=== PATIENT | female | born 1975 | race Caucasian/White ===

== ENCOUNTER 2016-11-08 14:25 | Emergency (ER) | payer OTHER ==
[~2016-11-08] VITALS: Ht 167.6 cm; Wt 74.8 kg
[~2016-11-08 14:25] MED LIST: AMOXICILLIN500 MG PO; ATENOLOL25 MG PO; ATIVAN0.5 MG PO; HYDROCODONE/ACE1 TA1 PO; LORAZEPAM1 MG PO; MOBIC15 MG PO; NAPROSYN 500 M500 MG PO; PRILOSEC40 MG PO; TOPROL XL25 MG PO; VITAB121000 PO
--- NOTE | 2016-11-08 16:05 | ED GENERAL ADULT ---
History of Present Illness General Chief Complaint: Chest Pain Stated Complaint: CHEST PRESSURE Source: patient Exam Limitations: no limitations Vital Signs & Intake/Output Vital Signs & Intake/Output Vital Signs Date Time Temp Pulse Resp B/P Pulse O2 O2 Flow FiO2 Ox Delivery Rate 11/08 1739 98.6 96 18 130/73 100 Room Air 11/08 1459 98.2 54 20 135/79 99 Room Air Allergies Coded Allergies: NO KNOWN ALLERGIES (10/30/14) Reconcile Medications Atenolol 25 MG TABLET 1 TAB PO DAILY BP (Reported) Cyanocobalamin (Vitamin B-12) 1,000 MCG TAB 1 TAB PO DAILY V (Reported) HYDROCODONE/ACETAMINOPHEN (Hydrocodon-Acetaminophen 5-325) 1 TAB TAB 1 TAB PO Q6P PRN PAIN Lorazepam (Ativan) 0.5 MG TAB 1 TAB PO DAILY anxiety Naproxen (Naprosyn) 500 MG TAB 1 TAB PO BID PRN PAIN Omeprazole (Prilosec) 40 MG ECC 40 MG PO DAILY reflux Triage Note: RECEIVED 41 YO FEMALE C/O SQUEEZING MID STERNAL CHEST PRESSURE, STARTED 2 HOURS AGO. PT REPORTS SHE WOKE UP THIS AM WITH A HEADACHE AND FEELING DIZZY. NO C/O SOB. Triage Nurses Notes Reviewed? yes Onset: Abrupt Duration: hour(s): Timing: recent history : No Patient currently breastfeeds: No HPI: 11/08/16 4:34 PM This is a 41-year-old female who presents to the emergency department complaining of pinching chest pain and dizziness. The patient states she was in her usual state of health until this morning when she developed pinching chest pain that was associated with dizziness. She does admit to a history of palpitations. She says she has irregular heartbeats. She is on atenolol for this. She has been going to the gym recently and yesterday she went to the gym and was doing rowing exercise. She is concerned this may be contributing to the pinching chest pain. The onset of the symptoms were abrupt, the duration has been just this morning with onset approximately 7-8 hours prior to arrival. The severity is significant; as his symptoms required her to come to the emergency department for care. She does not smoke. She is not on oral contraceptives. Her well's score is low risk and her Perc score is 0. EKG reveals normal sinus rhythm. Labs have been sent and x-rays been ordered. RN note appreciated. The patient told me that his symptoms began this morning including the pinching chest pain. Past History Travel History Traveled to [place] past 21 day No Medical History Any Pertinent Medical History? see below for history Neurological: NONE EENT: NONE Cardiovascular: hypertension, PALPATATIONS Respiratory: NONE Gastrointestinal: NONE Hepatic: hepatitis B Renal: NONE Musculoskeletal: NONE Psychiatric: anxiety Endocrine: NONE Blood Disorders: anemia Cancer(s): NONE PRACTICE LEAD/Reproductive: NONE Surgical History Surgical History: NONE Psychosocial History What is your primary language Arabic Tobacco Use: Never used Family History Hx Contributory? No Review of Systems Review of Systems Constitutional: Denies: fever. EENTM: Denies: visual changes. Respiratory: Denies: short of breath. Cardiovascular: Reports: chest pain. GI: Denies: abdominal pain. Genitourinary: Reports: no symptoms. Musculoskeletal: Reports: no symptoms. Skin: Denies: rash. Neurological/Psychological: Reports: no symptoms. Hematologic/Endocrine: Reports: no symptoms. Physical Exam Physical Exam General Appearance: well developed/nourished, alert, awake, anxious, mild distress Head: atraumatic, normal appearance Eyes: Bilateral: normal appearance, PERRL, EOMI. Ears, Nose, Throat: normal pharynx, normal ENT inspection Neck: normal inspection, supple, full range of motion Respiratory: normal breath sounds, chest non-tender, no respiratory distress Cardiovascular: regular rate/rhythm Peripheral Pulses: 4+ radial (R), 4+ radial (L) Gastrointestinal: soft, non-tender Back: normal inspection, normal range of motion Extremities: normal inspection, normal range of motion, no edema Neurologic/Psych: no motor/sensory deficits, awake, alert, oriented x 3 Skin: intact, normal color, warm/dry Core Measures ACS in differential dx? Yes CVA/TIA Diagnosis: No Severe Sepsis Present: No Septic Shock Present: No Progress Differential Diagnoses I considered the following diagnoses in my evaluation of the patient: [Pulmonary embolism, acute coronary syndrome, costochondritis, anxiety] Plan of Care: Orders Procedure Date/time Status Add-on Test (ER Only) 11/08 161 Active Add-on Test (ER Only) 11/08 161 Active THYROID STIMULATING HORMONE 11/08 1604 Complete THYROXINE 11/08 1604 Complete HUMAN BETA HCG SCREEN 11/08 1604 Complete TROPONIN LEVEL 11/08 1501 Complete PARTIAL THROMBOPLASTIN TIME 11/08 1501 Complete PROTHROMBIN TIME 11/08 1501 Complete COMPREHENSIVE METABOLIC PANEL 11/08 1501 Complete CHOLESTEROL 11/08 1501 Complete CBC WITHOUT DIFFERENTIAL 11/08 150 Complete EKG 11/08 1443 Active Laboratory Tests 11/08/16 1604: Anion Gap 12, Estimated GFR > 60, BUN/Creatinine Ratio 12.5, Glucose 88, Calcium 9.8, Total Bilirubin 0.4, AST 26, ALT 46, Alkaline Phosphatase 60, Troponin I < 0.01, Total Protein 8.3 H, Albumin 4.9, Globulin 3.4, Albumin/Globulin Ratio 1.4, Cholesterol 212 H, TSH 0.626, Thyroxine (T4) 9.0, Total Beta HCG NEGATIVE, PT 11.2, INR 1.07, APTT 34, CBC w Diff NO MAN DIFF REQ, RBC 4.73, MCV 87.9, MCH 29.1, RDW 14.4, MPV 9.7, Gran % 68.1, Lymphocytes % 21.8, Monocytes % 7.7, Eosinophils % 1.3, Basophils % 1.1, Absolute Granulocytes 5.3, Absolute Lymphocytes 1.7, Absolute Monocytes 0.6, Absolute Eosinophils 0.1, Absolute Basophils 0.1, PUBS MCHC 33.1 Initial ED EKG: NSR Prior EKG: unchanged Departure Departure Disposition: STILL A PATIENT Condition: Stable Clinical Impression Primary Impression: Chest pain Referrals: BIPIN MACHADO (PCP/Family) Departure Forms: Customer Survey General Discharge Information Critical Care Note Critical Care Note Critical Care Time: non-applicable
[2016-11-08 16:21] LABS: ABSOLUTE BASOPHIL COUNT 0.1 /CUMM (0.0-0.2); ABSOLUTE EOSINOPHIL COUNT 0.1 /CUMM (0.0-0.7); ABSOLUTE GRANULOCYTE CT 5.3 /CUMM (1.4-6.5); ABSOLUTE LYMPH COUNT 1.7 /CUMM (1.2-3.4); ABSOLUTE MONOCYTE COUNT 0.6 /CUMM (0.10-0.60); BASOPHIL % 1.1 % (0.0-2.0); EOSINOPHIL % 1.3 % (0-5); GRANULOCYTE % 68.1 % (42.2-75.2); HEMATOCRIT 41.6 % (37-47); MEAN CORPUSCULAR HGB 29.1 PG (27.0-31.0); MEAN CORPUSCULAR HGB CONC 33.1 G/DL (33.0-37.0); MEAN CORPUSCULAR VOLUME 87.9 FL (81.0-99.0); MEAN PLATELET VOLUME 9.7 FL (7.4-10.4); PLATELET COUNT 255 /CUMM (130-400); RBC DISTRIBUTION WIDTH 14.4 % (11.5-14.5); RED BLOOD CELL CT 4.73 /CUMM (4.20-5.40); WHITE BLOOD CELL COUNT 7.8 /CUMM (4.8-10.8)
[2016-11-08 16:32] LABS: PT 11.2 SEC (9.4-12.5); PTT 34 SEC (25-37)
--- NOTE | 2016-11-08 17:15 | RADIOLOGY REPORT ---
EXAMINATION: XR PORTABLE CHEST CLINICAL INFORMATION: Chest pain. COMPARISON: Chest x-ray 09/10/2014. TECHNIQUE: Portable AP view of the chest was obtained. FINDINGS: The lungs are well-expanded and clear without focal airspace consolidation. No pleural effusions or pneumothoraces are identified. Cardiomediastinal contours are within normal limits. Soft tissues are unremarkable. No acute osseous abnormality is identified. IMPRESSION: No acute cardiopulmonary abnormality.
[2016-11-08 17:39] VITALS: BP 130/73
== END 2016-11-08 17:49 ==
LOC: ERH 14:25
PROVIDERS: Physician Assistant
DX: R07.89 Other chest pain (principal)
CPT/HCPCS: 93005; 93010

== ENCOUNTER 2018-04-14 20:58 | Emergency (ER) | payer OTHER ==
[~2018-04-14] VITALS: Ht 167.6 cm; Wt 74.8 kg
[~2018-04-14 20:58] MED LIST changes: +ATENOLOL25 M1 PO; -ATENOLOL25 MG PO; +ATIVAN1 M1 PO; +CYCLOBENZAPRINE5 M2 PO; +IBUPROFEN600 M1 PO
[2018-04-14 21:58] LABS: ABSOLUTE BASOPHIL COUNT 0.1 /CUMM (0.0-0.2); ABSOLUTE EOSINOPHIL COUNT 0.1 /CUMM (0.0-0.7); ABSOLUTE GRANULOCYTE CT 5.8 /CUMM (1.4-6.5); ABSOLUTE LYMPH COUNT 2.2 /CUMM (1.2-3.4); ABSOLUTE MONOCYTE COUNT 0.7 /CUMM (0.10-0.60); BASOPHIL % 0.8 % (0.0-2.0); EOSINOPHIL % 1.3 % (0-5); GRANULOCYTE % 65.4 % (42.2-75.2); MEAN CORPUSCULAR HGB 29.7 PG (27.0-31.0); MEAN CORPUSCULAR HGB CONC 33.5 G/DL (33.0-37.0); MEAN CORPUSCULAR VOLUME 88.6 FL (81.0-99.0); MEAN PLATELET VOLUME 9.5 FL (7.4-10.4); PLATELET COUNT 204 /CUMM (130-400); RBC DISTRIBUTION WIDTH 13.2 % (11.5-14.5); RED BLOOD CELL CT 4.51 /CUMM (4.20-5.40); WHITE BLOOD CELL COUNT 8.8 /CUMM (4.8-10.8)
--- NOTE | 2018-04-14 21:59 | ED CARDIAC/CP/PALPITATIONS ---
History of Present Illness General Chief Complaint: Dyspnea (COPD, CHF, Other) Stated Complaint: SOB, HIGH BP Source: patient Exam Limitations: no limitations Vital Signs & Intake/Output Vital Signs & Intake/Output Vital Signs Date Time Temp Pulse Resp B/P B/P Pulse O2 O2 Flow FiO2 Mean Ox Delivery Rate 04/15 0139 98.2 56 18 132/72 98 Room Air 04/15 0043 97.3 62 16 128/65 99 Room Air 04/14 2237 98.1 60 18 137/72 99 04/14 2116 98.5 67 20 136/84 98 Room Air ED Intake and Output 04/15 0000 04/14 1200 Intake Total Output Total Balance Patient 165 lb Weight Weight Reported by Patient Measurement Method Allergies Coded Allergies: No Known Allergies (04/14/18) Reconcile Medications Atenolol 25 MG TABLET 1 TAB PO DAILY HEART (Reported) LORazepam (Ativan) 1 MG TAB 1 TAB PO BID PRN ANXIETY Triage Note: TRIAGE: PT TO ER SOB SINCE WAKING UP THIS MORNING. FELT A LITTLE BIT BETTER LATER IN DAY WHEN LAYING DOWN BUT WHEN SHE GOT UP IT RETURNED, CHECKED HER B/P AND IT WAS 153/105 SO GOT CONCERNED AND CAME TO ER FOR EVAL. DENIES ANY PAIN BUT STATES "I FEEL LIKE A BOTHER" AND POINTS TO HER MID BACK. STATES SHE "FEELS LIKE HOT FLASHES" AND "MY EYE IS BURNING". R/A SATS WNL. LCTA AT TRIAGE. B/P 136/84 AT TRIAGE Triage Nurses Notes Reviewed? yes Onset: Abrupt Duration: hour(s): Timing: single episode today Radiation: no radiation Activities at Onset: none : No Patient currently breastfeeds: No HPI: 42-year-old female comes into the emergency room for further evaluation of some shortness of breath and feeling like her heart racing. Some discomfort to her neck area. Symptoms started this morning. Intermittent. No fever chills vomiting. Denies any cough. Nothing seems to make the symptoms better or worse. Denies any other associated symptoms. (Yasir Brantley) Past History Travel History Traveled to [place] past 21 day No Medical History Any Pertinent Medical History? 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 No (Yasir Brantley) Review of Systems Review of Systems Constitutional: Reports: no symptoms. EENTM: Reports: no symptoms. Respiratory: Reports: see HPI. Cardiovascular: Reports: see HPI. GI: Reports: no symptoms. Genitourinary: Reports: no symptoms. Musculoskeletal: Reports: no symptoms. Skin: Reports: no symptoms. Neurological/Psychological: Reports: no symptoms. Hematologic/Endocrine: Reports: no symptoms. Immunologic/Allergic: Reports: no symptoms. All Other Systems: Reviewed and Negative (Yasir Brantley) Physical Exam Physical Exam General Appearance: well developed/nourished, alert, awake Head: atraumatic Eyes: Bilateral: normal appearance. Ears, Nose, Throat: normal ENT inspection, hearing grossly normal Neck: normal inspection Respiratory: normal breath sounds, no respiratory distress Cardiovascular: regular rate/rhythm Back: normal inspection Extremities: normal inspection Neurologic/Psych: awake, alert, oriented x 3, normal gait Skin: intact, normal color Core Measures ACS in differential dx? Yes CVA/TIA Diagnosis No Sepsis Present: No Sepsis Focused Exam Completed? No (Yasir Brantley) Progress Differential Diagnosis: AMI, cholecystitis, costochondritis, hyperthyroid, hyperventilation, musculoskeletal pain, myocarditis, pancreatitis, pericarditis, pneumonia, pneumothorax, pulmonary embolism, PUD/GERD, PVCs/PACs, V-fib/V-Tach Plan of Care: Orders Procedure Date/time Status TROPONIN LEVEL 04/15 15 Complete EKG 04/15 15 Active TROPONIN LEVEL 04/14 2104 Complete LIPASE 04/14 2104 Complete HEPATIC FUNCTION PANEL 04/14 2104 Complete HUMAN BETA HCG SCREEN 04/14 2104 Complete D-DIMER 04/14 2104 Complete CBC WITHOUT DIFFERENTIAL 04/14 2104 Complete BASIC METABOLIC PANEL 04/14 2104 Complete AMYLASE 04/14 2104 Complete EKG 04/14 2104 Active Laboratory Tests 04/15/18 0011: Troponin I < 0.01 04/14/18 2140: Anion Gap 12, Estimated GFR > 60, BUN/Creatinine Ratio 17.1, Glucose 87, Calcium 9.1, Total Bilirubin 0.3, Direct Bilirubin 0.1, AST 25, ALT 36, Alkaline Phosphatase 51, Troponin I < 0.01, Total Protein 7.3, Albumin 4.4, Amylase 54, Lipase 33, Total Beta HCG NEGATIVE, D-Dimer High Sensitivty < 200, CBC w Diff NO MAN DIFF REQ, RBC 4.51, MCV 88.6, MCH 29.7, MCHC 33.5, RDW 13.2, MPV 9.5, Gran % 65.4, Lymphocytes % 25.1, Monocytes % 7.4, Eosinophils % 1.3, Basophils % 0.8, Absolute Granulocytes 5.8, Absolute Lymphocytes 2.2, Absolute Monocytes 0.7 H, Absolute Eosinophils 0.1, Absolute Basophils 0.1 Diagnostic Imaging: Viewed by Me: Radiology Read. Discussed w/RAD: Radiology Read. Radiology Impression: PATIENT: CARL CHOI PRESENT AGE: 42 PATIENT ACCOUNT NO: [id number] : 74 LOCATION: [facility] ORDERING PHYSICIAN: Manav Tripathi MD SERVICE DATE: 04/14/18 EXAM TYPE: RAD - XRY- PORTABLE CHEST XRAY EXAMINATION: XR PORTABLE CHEST CLINICAL INFORMATION: Chest pain COMPARISON: Chest x-ray February 26, 2018 TECHNIQUE: Portable frontal view of the chest was obtained. 10:33 PM FINDINGS: No significant abnormality is noted involving the heart, lungs, mediastinum, bony thorax or soft tissues. IMPRESSION : Unremarkable examination. DICTATED BY: Adarsh Soares MD DATE/TIME DICTATED:01/27 AERIAL TRAM OPERATOR:FREDY DATE/TIME TRANSCRIBED:04/14/182257 CONFIDENTIAL, DO NOT COPY WITHOUT APPROPRIATE AUTHORIZATION. <Electronically signed in Other Vendor System> SIGNED BY: Adarsh Soares MD 04/14/182302 Initial ED EKG: normal sinus rhythm, rate (61), BORDERLINE T WAVE ABORMALITIES Repeat EKG: unchanged Hand-Off Endorsed To: Manav Tripathi MD Endorsed Time: 32 Pending: labs (repeat troponin) (Yasir Brantley) Departure Departure Disposition: HOME OR SELF CARE Condition: Stable Clinical Impression Primary Impression: Palpitations Secondary Impressions: Atypical chest pain Referrals: Anshu Cee MD (PCP/Family) Additional Instructions: Follow-up with your primary care doctor. Return if any concerns worsening symptoms. Please go over all results of today's visit with your primary care doctor. Contact your primary care doctor to let them know you were here in the emergency room. There may be nonspecific findings which may not be related to your visit today here in the emergency room but may require further evaluation and chronic monitoring by your primary care doctor. If you had a laceration today the chance of foreign body always remains. You should follow-up with your primary care doctor for recheck in 3-5 days for a wound check. If you had an x-ray done there is a chance that a fracture could have been missed on initial read and you should follow-up with your primary care doctor for repeat x-rays if symptoms persist. If your blood pressure was elevated here in the emergency room please have rechecked by [facility] primary care doctor within the next 48. If you were prescribed a narcotic here in the emergency room or any type of controlled substances you're not allowed to drive while taking this medication or operate any type of heavy machinery. Narcotics can make you feel lightheaded dizziness nausea and can cause constipation. You may need to pickler helper a stool softener. Thank you for choosing [facility] emergency room. Please return to the emergency room immediately if you have any other concerns worsening of symptoms. Departure Forms: Customer Survey General Discharge Information (Yasir Brantley) PA/APICULTURIST Co-Sign Statement Statement: ED Attending supervision documentation- [] I saw and evaluated the patient. I have also reviewed all the pertinent lab results and diagnostic results. I agree with the findings and the plan of care as documented in the PA's/APICULTURIST's documentation. [x] I have reviewed the ED Record and agree with the PA's/APICULTURIST's documentation. [] Additions or exceptions (if any) to the PAs/APICULTURIST's note and plan are summarized below: [] (Bhumi COOL,Manav Araujo) Critical Care Note Critical Care Note Critical Care Time: non-applicable (Yasir Brantley)
--- NOTE | 2018-04-14 23:03 | RADIOLOGY REPORT ---
EXAMINATION: XR PORTABLE CHEST CLINICAL INFORMATION: Chest pain COMPARISON: Chest x-ray February 26, 2018 TECHNIQUE: Portable frontal view of the chest was obtained. 10:33 PM FINDINGS: No significant abnormality is noted involving the heart, lungs, mediastinum, bony thorax or soft tissues. IMPRESSION: Unremarkable examination.
[2018-04-15 01:39] VITALS: BP 132/72
== END 2018-04-15 01:42 ==
LOC: ERH 20:58
PROVIDERS: Pediatrics
DX: R00.2 Palpitations (principal); R07.89 Other chest pain
CPT/HCPCS: 71045; 93005; 93010